=== PATIENT | male | born 1945 | race Caucasian/White ===

== ENCOUNTER 2016-12-30 09:04 | Inpatient (IN) | payer MEDICARE ==
[~2016-12-30] VITALS: Ht 167.6 cm; Wt 63.9 kg
--- NOTE | ~2016-12-30 | OR ---
ADMIT: 12/30/2016 RM/LOC: 530 [facility] MR#: [id number] [address] [address] [facility] [place] [address] [facility] Operative/Delivery Room Report SEX: M AGE: 71 : 1945 SURGERY DATE: 12/31/2016 SURGEON: Addison Vang MD PREOPERATIVE DIAGNOSES: 1. Anemia. 2. Epigastric pain. 3. Gastrointestinal bleed. POSTOPERATIVE DIAGNOSES: 1. Deep duodenal ulcer without active bleeding. 2. Esophagitis. PROCEDURE: Esophagogastroduodenoscopy with biopsy. PROCEDURE IN DETAIL: The patient was taken to the endoscopy suite and placed left side down on his hospital cart. A bite block was placed and the IV sedation was established. The upper endoscope was advanced through the oropharynx into the esophagus without difficulty. The scope was pushed under visualization of the stomach. Air was used to insufflate the stomach. The pylorus was intubated. In the post bulbar position and the duodenum, there was surrounding inflammatory change and a deep duodenal ulcer. Biopsies of the margin of this were obtained. The scope was withdrawn of the stomach. There was mild hyperemia and gastritis of the antrum. On retroflexion of the scope, the gastric body, fundus, and cardia appeared normal. There was a small hiatal hernia visualized. The scope was withdrawn to the gastroesophageal junction, where there was moderate inflammatory change. Biopsies were obtained. The remainder of the esophageal mucosa appeared normal upon withdrawal of the scope. Air was suctioned. The patient tolerated the procedure well and transferred to the recovery area in stable condition. Addison Vang MD/ cortez JOB #: [id number] CC: Jabari Allen, Attending Physician Jabari Allen, Family Physician
--- NOTE | 2016-12-31 09:33 | CO ---
ADMIT: 12/30/2016 RM/LOC: 315 [facility] MR#: [id number] [address] [address] [place] [address] OFC Consultation SEX: M AGE: 71 : 1945 DATE OF CONSULTATION: 12/30/2016 ATTENDING PHYSICIAN: Jabari Allen CONSULTING PHYSICIAN: Addison Vang MD ADDENDUM: Renato is seen in consultation for his anemia. I have reviewed the chart, Jabari Chawla's note, and assessment and plan. I am in agreement with that. We will plan for EGD and colonoscopy tomorrow. Risks of that were discussed with Renato, and he agrees to proceed. Addison Vang MD/ modl JOB #: [id number] CC: Jabari Allen, Attending Physician [facility] Physician, Family Physician
--- NOTE | 2017-01-01 12:40 | ER ---
ADMIT: 12/30/2016 RM/LOC: ER [facility] MR#: [id number] [address] [address] [place] [address] [facility] Emergency Room Report SEX: M AGE: 71 : 1945 DATE: 12/30/2016 ADDENDUM: This is a 71-year-old white male, with history of chronic alcoholism, psychiatric disorders, is in a jail up in [place] which deals with psychiatric geriatric patients. He comes down through the [place] and then he had a syncope event. Known to be orthostatic, they found that his hemoglobin was 7.2. This time, positive heme stools. Repeat hemoglobin 7.2. He is not septic. Lactate is normal. EKG maybe a little tachycardic chest x- ray, negative. He had a recent CT at the [place] which essentially did not show anything. I spoke with Dr. Allen since the [place] is on diversion and will need to admit. CONDITION ON DISCHARGE: Serious but stable at this time. He still will go to the unit. Jabari San MD/ cortez JOB #: [id number] CC: Jabari San MD, Attending Physician [facility] Physician, Family Physician
--- NOTE | 2017-01-01 16:18 | HP ---
ADMIT: 12/30/2016 RM/LOC: 315 [facility] MR#: [id number] [address] [address] [place] [address] OFC History and Physical SEX: M AGE: 71 : 1945 DATE OF SERVICE: CHIEF COMPLAINT: Syncope. HISTORY OF PRESENT ILLNESS: Ephraim is a 71-year-old man, he is a [place]. He resides in [place] at a nursing unit. He does have history of gout, hyperlipidemia, chronic pancreatitis, BPH, COPD, seizure disorders, diabetes, hypertension, hyperlipidemia, chronic pain as well as he does have a history of polysubstance abuse. Unclear if his diagnosis is truly schizophrenic versus bipolar disorder. He does have a history of what appears to be dementia, likely secondary to his polysubstance abuse. He was transferred to the [place] secondary to a syncopal episode that he did have. He was evaluated there, did have potentially some imaging; however, I do not see this anywhere on the chart as well as did have some laboratory, noted to be acutely dehydrated. Blood pressure was 55/38 at the [place] and they transferred him to the ER. He was evaluated by Dr. Jabari San, noted to have anemia and is admitted for GI bleed. Blood pressure stabilized. He was transferred to the ICU. I evaluated him at his bedside upon arrival in room #315. He has no chest pain. No shortness of breath. No nausea, no vomiting. He does have some chronic abdominal pain, requesting pain control regimen. He denies any blood in his stools or anything like that. However, he is having stools as he tried to throw it at the nurse in the ER. He is in no acute distress, and he is asking to eat a meal. PAST MEDICAL HISTORY: 1. Orthostatic hypotension. 2. Cataracts. 3. Chronic gastritis. 4. Ulnar neuropathy. 5. Tobacco abuse. 6. Hypertension. 7. Hyperlipidemia. 8. Marijuana abuse. 9. Type 2 diabetes mellitus. 10.Cluster B personality disorder. 11.Chronic alcoholism. 12.Chronic pancreatitis. 13.Chronic abdominal pain. 14.Schizoaffective disorder. 15.BPH. 16.Cognitive impairment. MEDICATIONS: 1. Allopurinol. 2. Amoxicillin. ADMIT: 12/30/2016 RM/LOC: 315 [facility] MR#: [id number] [address] [address] [place] [address] OFC History and Physical SEX: M AGE: 71 : 1945 3. Aspirin. 4. Atorvastatin. 5. Creon. 6. Fluticasone. 7. Lamictal. 8. Loratadine. 9. Losartan. 10.Magnesium. 11.Metformin. 12.Metoprolol. 13.Metronidazole. 14.Naproxen. 15.Zofran. 16.Prednisone, looks like it potentially is due to some colitis he had, last given a week ago. 17.Seroquel. 18.Carafate. 19.Multivitamin. 20.Thiamin. 21.Venlafaxine. 22.Tylenol. 23.Albuterol. 24.Cepacol. ALLERGIES: NO KNOWN MEDICAL ALLERGIES. FAMILY HISTORY: Unknown. SOCIAL HISTORY: He has an extensive history of polysubstance abuse. However, he is currently in a facility, presumably not drinking, smoking, or doing drugs. His next of kin is his sister. He is disabled secondary to his illnesses. He did serve in the [employer] from early to latter 60s and is a [place] . REVIEW OF SYSTEMS: Complete review of systems reviewed, per HPI. PHYSICAL EXAMINATION: VITAL SIGNS: Blood pressure is 126/70, his pulse is 90, respiratory rate is 18. He is afebrile. He is 90% on room air. GENERAL: He is alert and oriented x2. He is agitated early, easily distracted. Very tangential. HEENT: Normocephalic and atraumatic. Extraocular muscles are intact. Pupils equal and responsive to light. He has dry mucous membranes. HEART: Tachycardic. LUNGS: Distant. ABDOMEN: Soft, nondistended. Tender to deep palpation. NEURO: Moves all his extremities. He is a very happy gentleman. LABORATORY AND X-RAY DATA: Urinalysis, no UTI; however, his cultures got ADMIT: 12/30/2016 RM/LOC: 315 [facility] MR#: [id number] [address] [id number] [place] [address] OFC History and Physical SEX: M AGE: 71 : 1945 positive ketones, hemoccult positive. White blood cells are 12.7, hemoglobin is 7.3, platelets 268. Blood cultures drawn and pending. Lactic acid is 2. Sodium is 133, potassium is 3.9, chloride is 96, bicarb is 28, BUN is 38, creatinine is 1. Glucose is 97, calcium is 7.4, phos is 2.2, bilirubin is 0.3, total protein is 4.5, albumin is 2.1. AST is 23, ALT is 17, alkaline phosphatase is 71. Ethanol is negative. Troponin less than 0.015. INR is 1. Chest x-ray, no interval change. He has some scattered fibrotic changes. Procalcitonin is 0.08. ASSESSMENT: 1. Acute gastrointestinal bleeding. 2. Acute blood loss anemia. 3. Syncope secondary to former. 4. Schizoaffective disorder. 5. Chronic obstructive pulmonary disease. 6. Physical deconditioning. 7. Hypertension. 8. Hyperlipidemia. 9. Recent history of colitis. 10.Chronic abdominal pain. 11.Seizure disorder. At this time, we will go ahead and admit him to my service. He is admitted to the ICU, vital signs are currently stable. We are transfusing 1 unit of packed red blood cells. We will follow this up with a repeat H and H. We will have packed unit on hold. With his history of chronic gastritis, I will go ahead and continue the Protonix that I initiated in the ER. He does have some abdominal pain. His creatinine is stable. I think it is reasonable to do a CT of his abdomen and pelvis with IV contrast secondary to his history of colitis just to ensure that this is not indeed colitis and his bleeding that is actually perforated. He does appear to be acutely septic at this time. However, I am going to go ahead and just start him on some Zosyn at this time empirically secondary to his previous symptoms and his substantial abdominal pain. Maintain him on his antiepileptic therapy as well as his psychoactive medications. He will receive no pharmacologic DVT prophylaxis secondary to acute gastrointestinal bleeding. ADMIT: 12/30/2016 RM/LOC: 315 [facility] MR#: [id number] [address] [place] [address] [place] [address] OFC History and Physical SEX: M AGE: 71 : 1945 We will continue to support him medically. He will remain n.p.o. for the time being. The patient clearly does not have sepsis and he does have a gastrointestinal bleed. However, I am empirically starting these antibiotics secondary to his recent history of colitis and his increased abdominal pain. I tried to ask the patient's code status, he does not certainly understand this. So, I will go ahead and find this on his outpatient documentation. Discussed the plan with the patient, he expressed understanding, was in agreement, and had no further questions. Jabari Allen MD/ cortez JOB #: [id number] CC: Jabari Allen, Attending Physician [facility] Physician, Family Physician
[2017-01-04] MEDS ORDERED: PROTONIX40 MG PO (17:43)
[2017-01-04] MEDS ORDERED: OXY IR DPS5 MG PO (17:44)
[2017-01-04] MEDS ORDERED: PROSCAR DPS5 MG PO (17:44)
[2017-01-04] MEDS ORDERED: CREON DR 12,001 EACH PO (17:44)
[2017-01-04] MEDS ORDERED: ALLOPURINOL100 MG PO (17:44)
[2017-01-04] MEDS ORDERED: ATORVASTATIN CA40 MG PO (17:44)
[2017-01-04] MEDS ORDERED: CLARITIN10 M2 PO (17:45)
[2017-01-04] MEDS ORDERED: FLONASE 0.05% D16 GM NS (17:45)
[2017-01-04] MEDS ORDERED: COZAAR100 MG PO (17:45)
[2017-01-04] MEDS ORDERED: LAMICTAL DPS100 MG PO (17:45)
[2017-01-04] MEDS ORDERED: ZOFRAN8 MG PO (17:46)
[2017-01-04] MEDS ORDERED: SEROQUEL DPS300 MG PO (17:46)
[2017-01-04] MEDS ORDERED: GLUCOPHAGE1000 MG PO (17:46)
[2017-01-04] MEDS ORDERED: SEROQUEL400 MG PO (17:46)
[2017-01-04] MEDS ORDERED: MAG-OX400 MG PO (17:46)
[2017-01-04] MEDS ORDERED: EFFEXOR XR DPS150 MG PO (17:47)
[2017-01-04] MEDS ORDERED: THERA-M1 EACH PO (17:47)
[2017-01-04] MEDS ORDERED: CARAFATE DPS1 GM PO (17:47)
[2017-01-04] MEDS ORDERED: VITAMIN B1100 MG PO (17:47)
[2017-01-04] MEDS ORDERED: SENEXON8.6 MG PO (17:47)
[2017-01-04] MEDS ORDERED: PROVENTIL HFA6.7 GM IH (17:48)
[2017-01-04] MEDS ORDERED: CEPACOL SORE T1 EACH PO (17:48)
[2017-01-04] MEDS ORDERED: TYLENOL DPS325 MG PO (17:48)
[2017-01-04] MEDS ORDERED: LIDOCAINE HCL85 GM TP (17:49)
--- NOTE | 2017-01-06 08:55 | CO ---
ADMIT: 12/30/2016 RM/LOC: 315 [facility] MR#: [id number] [address] [address] [place] [address] OFC Consultation SEX: M AGE: 71 : 1945 DATE OF CONSULTATION: 12/30/2016 ATTENDING PHYSICIAN: Jabari Allen CONSULTING PHYSICIAN: Addison Vang MD REASON FOR CONSULTATION: Anemia, upper gastrointestinal blood loss. HISTORY OF PRESENT ILLNESS: Ephraim is a very pleasant, 71-year-old male, who apparently has a significant history of syncopal episodes. This has been going on for quite some time. His last syncopal episode was this morning where apparently he was out smoking a cigarette and suddenly became weak and fainted. He denies any loss of consciousness however, or head trauma. He further denies any abdominal pain, hematemesis, diarrhea, constipation, dark or bloody stools. He did get a little bout of nausea earlier today where he did have one times emesis, however, it was clear. He denies taking any blood thinning medications, but apparently, on his home med list aspirin is included, the dose of which I am not aware of. He denies ever having any prior EGDs or colonoscopies. Of note, he is a [facility] patient. PAST MEDICAL HISTORY: Significant for: 1. Syncopal episodes. 2. BPH. 3. Hypertension. 4. Gastritis. 5. Ulnar neuropathy. 6. Hyperlipidemia. 7. Type 2 diabetes. 8. Chronic pancreatitis. 9. Chronic abdominal pain. 10.Cognitive impairment and positive for psych issues including schizoaffective disorder and cluster B personality disorder. SURGERIES: 1. No prior EGDs or colonoscopies. 2. Cataract surgery. ALLERGIES: NO KNOWN DRUG ALLERGIES. MEDICATIONS: Well documented in chart. FAMILY HISTORY: Noncontributory. SOCIAL HISTORY: The patient is a former alcohol user and polysubstance abuse user. He is a current tobacco user. REVIEW OF SYSTEMS: CONSTITUTIONAL: The patient denies any fever, chills, or night sweats. The rest of comprehensive 10-point review of systems was performed and all other systems are negative. ADMIT: 12/30/2016 RM/LOC: 315 [facility] MR#: [id number] [address] [address] [place] [address] OFC Consultation SEX: M AGE: 71 : 1945 PHYSICAL EXAMINATION: GENERAL: The patient is in no acute distress. He is alert and oriented. HEENT: Head is normocephalic and atraumatic. EOMS are intact. Conjunctivae free of icterus, erythema, or pallor. Pinnae, free of deformities. Nose, midline. No tracheal deviation. NECK: Supple. SKIN: Positive for pallor. Negative for jaundice, clubbing, edema, or cyanosis. LUNGS: Normal respiratory effort. HEART: Tachycardic. Regular rhythm. ABDOMEN: Soft, nondistended, and tender in epigastric region. NEURO: Grossly intact. LABORATORY DATA: Hemoglobin is 7.2. ASSESSMENT: 1. Anemia. 2. Upper gastrointestinal bleed. PLAN: The plan is to have the patient undergo EGD tomorrow performed by Dr. Vang. I discussed the risks, alternatives, benefits, and complications of the surgery with the patient to which he is in agreement of this plan, had all his questions answered and would like to proceed. I will get him set up for the surgery for tomorrow and will go from there. Thanks for the consultation of this patient. EDIT: 12/30/2016 0952 LOUISE Willis / Addison Vang MD / cortez JOB #: [id number] CC: Jabari Allen, Attending Physician [facility] Physician, Family Physician
--- NOTE | 2017-01-08 09:05 | DS ---
ADMIT: 12/30/2016 RM/LOC: 530 [facility] MR#: [id number] [address] [address] [place] [address] OFC Discharge Summary SEX: M AGE: 71 : 1945 ADMISSION DATE: 12/30/2016 DISCHARGE DATE: 01/03/2017 DISCHARGE DIAGNOSES: 1. Upper GI (gastrointestinal) bleed secondary to duodenal ulcer. 2. Esophagitis. 3. Syncope, resolved. 4. Acute blood loss anemia, status post packed red blood cell transfusion. 5. Diabetes mellitus, type 2. 6. BPH (benign prostate hypertrophy). 7. Hypertension. 8. Hyperlipidemia. 9. Chronic abdominal pain/chronic pancreatitis. 10.Cognitive impairment with questionable schizoaffective disorder/depression. 11.Chronic back pain. CONSULTATIONS: General surgery. PROCEDURES: EGD with biopsies. REASON FOR ADMISSION: This is a pleasant 71-year-old gentleman with a history of multiple medical problems. He currently lives at [facility]. He presented to the Emergency Room with complaints of syncopal episode. Nausea and emesis were noted. He was found to be hypotensive and anemic and there was concern for GI bleed. He was noted to be very anemic with a hemoglobin of 7.3, and he is admitted for further evaluation and treatment. For complete details, please see history and physical and consult notes as well as procedure notes dictated in the history and physical. At time of admission, he was admitted and he was transfused a unit of packed red blood cells. He was started on proton pump inhibitor and any antiplatelet agents were stopped. ADMIT: 12/30/2016 RM/LOC: 530 [facility] MR#: [id number] [address] [address] RENATO VIDALES [place] [place] [address] OFC Discharge Summary SEX: M AGE: 71 : 1945 He was made n.p.o. and General Surgery was consulted and he consented for an EGD and did undergo the EGD. They found a deep duodenal ulcer without active bleeding and signs of esophagitis. Biopsies returned and did not show anything abnormal. They were negative for H. pylori. His hemoglobin stabilized nicely. He ambulated and ate. He had no further nausea or vomiting. He had no black and tarry stools. His hemoglobin stabilized at 8.1. He was thought to be ready for discharge on 01/03. His discharge medications are found on his discharge medication list. Discharge diet is ADA as tolerated. His activity is as tolerated. [facility] in the next couple of weeks. We will be holding his aspirin and anti-inflammatories for the time being. Given this ulcer disease, he will continue with proton pump inhibitor and Carafate. Kelby Robertson MD/ dustin JOB #: [id number] CC: Jabari Allen MD, Attending Physician Jabari Allen MD, Family Physician
== END 2017-01-03 10:50 | disposition other institution (70) | DRG 378 ==
LOC: ER 09:04 → 5MS 12:27 → 3ICU 12:27 → 5MS 12-31 11:59
PROVIDERS: ADMIT Internal Medicine
PROC: 30233N1 Transfusion of Nonautologous Red Blood Cells into Peripheral Vein, Percutaneous Approach (ICD-10-PCS; 2016-12-30)
PROC: 0DB48ZX Excision of Esophagogastric Junction, Via Natural or Artificial Opening Endoscopic, Diagnostic (ICD-10-PCS; principal; 2016-12-31)
DX: K26.4 Chronic or unspecified duodenal ulcer with hemorrhage (principal); D62 Acute posthemorrhagic anemia; I95.9 Hypotension, unspecified; J44.9 Chronic obstructive pulmonary disease, unspecified; K86.1 Other chronic pancreatitis; F03.90 Unspecified dementia, unspecified severity, without behavioral disturbance, psychotic disturbance, mood disturbance, and anxiety; E86.0 Dehydration; E11.9 Type 2 diabetes mellitus without complications; F25.0 Schizoaffective disorder, bipolar type; M10.9 Gout, unspecified; K20.9 Esophagitis, unspecified; K44.9 Diaphragmatic hernia without obstruction or gangrene; E78.5 Hyperlipidemia, unspecified; N40.0 Benign prostatic hyperplasia without lower urinary tract symptoms; G40.909 Epilepsy, unspecified, not intractable, without status epilepticus; F41.9 Anxiety disorder, unspecified; K21.9 Gastro-esophageal reflux disease without esophagitis; I10 Essential (primary) hypertension; F10.21 Alcohol dependence, in remission; F17.210 Nicotine dependence, cigarettes, uncomplicated; I95.1 Orthostatic hypotension; K29.50 Unspecified chronic gastritis without bleeding; G56.20 Lesion of ulnar nerve, unspecified upper limb; F60.89 Other specific personality disorders; Z79.82 Long term (current) use of aspirin; Z79.52 Long term (current) use of systemic steroids